=== PATIENT | female | born 1985 | race Caucasian/White ===

== ENCOUNTER 2020-09-08 15:20 | Inpatient (IN) | payer BC ==
[~2020-09-08] VITALS: Ht 162.6 cm; Wt 63.5 kg
[2020-09-08 17:08] LABS: HEMOGLOBIN 13.1 gm/dl (12.3-15.3); RED BLOOD COUNT 4.21 M/UL (4.00-5.10)
[2020-09-08 17:29] LABS: BUN/CREATININE RATIO 12 (0-10)
[2020-09-08] MEDS ORDERED: TRI-SPRINTEC T1 EACH PO (19:25)
[2020-09-08] MEDS ORDERED: LEVOTHYROXINE88 MCG PO (19:25)
[2020-09-08] MEDS ORDERED: CELEXA 20MG TAB20 MG PO (19:26)
[2020-09-09 03:12] LABS: RED BLOOD COUNT 3.91 M/UL (4.00-5.10); WHITE BLOOD COUNT 7.6 K/UL (4.5-11.0)
[2020-09-09 03:29] LABS: BUN/CREATININE RATIO 11 (0-10)
[2020-09-10 09:01] LABS: BUN/CREATININE RATIO 8 (0-10)
== END 2020-09-10 14:56 | disposition home or self-care (01) | DRG 440 ==
LOC: ER1 15:20 → MED SURG 4 18:17 → CDU 18:17 → MED SURG 4 21:20
PROVIDERS: Physician Assistant; ADMIT Internal Medicine
DX: K85.90 Acute pancreatitis without necrosis or infection, unspecified (principal); E03.9 Hypothyroidism, unspecified; E87.6 Hypokalemia; Z90.49 Acquired absence of other specified parts of digestive tract
CPT/HCPCS: 36415; 80048; 80053; 81001; 82150; 83690; 84478; 85025; 96374; 96375; 96376; 99285; G0378; J2270; J2405; J7030; Q9967

== ENCOUNTER → 2021-07-07 | Outpatient (CLI) | payer BC ==
[~2021-07-07] MED LIST: CELEXA 20MG TAB20 MG PO; LEVOTHYROXINE88 MCG PO; TRI-SPRINTEC T1 EACH PO
== END ==
LOC: MRI 10:57
DX: Z87.19 Personal history of other diseases of the digestive system (principal); Z90.49 Acquired absence of other specified parts of digestive tract
CPT/HCPCS: 36415; 74181; 80061; 80076; 82150; 83690